=== PATIENT | female | born 1990 | race Caucasian/White ===

== ENCOUNTER 2024-05-20 10:56 | Emergency (ER) | payer BC, SELFPAY ==
[2024-05-20 11:01] VITALS: BP 151/81; PULSE 96; RESP 18; TEMP 37; O2SAT 100; BMI 24.2
--- NOTE | 2024-05-20 11:21 | CRLHL7_ITS ---
For Patients: As a result of the Century Cures Act, medical imaging exams and procedure reports are released immediately into your electronic medical record. You may view this report before your referring provider. If you have questions, please contact your health care provider. Indication: Chest pain Technique: PA and lateral views of the chest. Comparison: None. Findings: Normal cardiomediastinal silhouette. No focal consolidation, pleural effusions, or visualized pneumothorax. Impression: No acute cardiopulmonary disease. Dictated by Bull Spicer MD @ 05/20/2024 12:49:45 PM (Electronically Signed)
--- NOTE | 2024-05-20 11:21 | ED.GENADULT ---
HPI - General Adult General Date Seen: 05/20/24 Chief complaint: Anxiety Stated complaint: Chest pain, high cholesterol Time Seen by Provider: 05/20/24 11:10 Source: patient, RN notes reviewed and old records reviewed Mode of arrival: ambulatory Limitations: no limitations History of Present Illness HPI narrative: Patient is a 33-year-old here for evaluation at the recommendation of the triage nurse for chest pain. She says a week ago or so she had an episode of pain in her left chest which was sharp, brief and kind of doubled her over. This is in the left lateral chest. She has had some more dull pain that seemed to spread into the anterior left chest, back and shoulder. All of this resolved, but today she redeveloped that sharp lateral chest pain, call clinic and was advised to call 911 but she did not feel that was necessary and so comes in by private car. She has kind of chronic problems with anxiety that causes some stomach upset but this feels different. She does not feel short of breath, sharp pain was pleuritic. She has not noted any lower extremity swelling or pain, no recent travel or immobility and denies any hormone use. Her brother was recently diagnosed with costochondritis. She has a history of high cholesterol, she is not sure with the numbers were but no treatment was recommended. There is no family history of coronary artery disease in parents, grandparents or siblings. She has not smoke since college. Does not drink significantly. Related Data Allergies Allergy/AdvReac Type Severity Reaction Status Date / Time Sulfa (Sulfonamide AdvReac Intermediate Rash Verified 06/13/22 13:47 Antibiotics) Review of Systems Status of ROS: Reports: 10 or more systems reviewed and unremarkable except as noted in History and below [facility] Medical History Otitis media ?H66.90 - Otitis media, unspecified, unspecified ear (ICD-10) Social History Smoking Status: Never smoker Exam Narrative: Exam Narrative: Vital signs as noted above. In general, an alert, well-appearing patient. Looks comfortable. Head: Normocephalic, atraumatic. Eyes: Pupils are equal reactive. Extraocular movements are full. Conjunctivae are normal. ENT: Mucous membranes are moist. Neck: Supple without lymphadenopathy. Heart: Regular rate and rhythm. No murmur or rub. Lungs: Clear bilaterally. No increased work of breathing, crackles or wheezes. Abdomen: Soft and nontender. No organomegaly. Extremities: Well perfused. No edema. No calf tenderness. Pulses intact. Neurologic: Patient is alert and oriented to person and place. Speech is fluent. Face is symmetric. Moves all extremities equally. Affect: Normal. Skin: Warm and dry. Well perfused. Const: Vital Signs, click to edit/add: Vital Signs - 24 hr 05/20/24 11:01 05/20/24 12:59 Temperature 98.6 F Pulse Rate [Pulse Oximeter] 96 73 Respiratory Rate 18 16 Blood Pressure [Ri ght Upper Arm] 151/81 H 119/74 Pulse Oximetry 100 100 Oxygen Delivery Me thod Room Air Room Air Documenting provider has reviewed patient's vital signs: yes Course Course ED Course: Patient is PERC negative, I did not order a D-dimer as I think she can be rule out for pulmonary embolism based on history and exam. With regard to her symptoms, I think these are unlikely to be cardiac, will do an EKG and chest x-ray. Symptoms are not overly suggestive of pericarditis or myocarditis, sounds more consistent with pleurisy, will do a chest x-ray to rule out underlying problems such as pneumothorax, pneumonia, pleural effusion etcetera, symptoms seem unlikely to be related to anxiety as well. Chest x-ray by my review is negative, final radiology read is negative. EKG shows a sinus rhythm, ventricular rate of 65, no ST segment changes, normal T-waves, no GA depression. Troponin is 0. Discussed with her I think symptoms are most likely pleurisy, could be more in the chest wall. She does have a history of shingles, would doubt this given relatively recent history of that but certainly if she develops a rash would recommend re-evaluation. Otherwise, I recommended a trial of ibuprofen 400 mg 3 times daily for few days up to 1 week, primary care follow-up for persistent symptoms and return to the ER for any acute worsening, severe pain, shortness of breath, fevers etcetera. Vital Signs Vital signs: Initial Vital Signs Temperature 98.6 F 05/20/24 11:01 Temperature Source Temporal Artery Scan 05/20/24 11:01 Pulse Rate 96 07/09/24 11:01 Respiratory Rate 18 05/20/24 11:01 Blood Pressure 151/81 H 05/20/24 11:01 Blood Pressure Mean 104 05/20/24 11:01 Pulse Oximetry 100 05/20/24 11:01 Oxygen Delivery Method Room Air 05/20/24 11:01 Vital Signs Temperature 98.6 F 05/20/24 11:01 Pulse Rate 96 05/20/24 11:01 Respiratory Rate 18 05/20/24 11:01 Blood Pressure 151/81 H 05/20/24 11:01 Pulse Oximetry 100 05/20/24 11:01 Oxygen Delivery Method Room Air 05/20/24 11:01 Temperature 98.6 F 05/20/24 11:01 Pulse Rate 73 05/20/24 12:59 Respiratory Rate 16 05/20/24 12:59 Blood Pressure 119/74 05/20/24 12:59 Pulse Oximetry 100 05/20/24 12:59 Oxygen Delivery Method Room Air 05/20/24 12:59 Medical Decision Making Lab Data Labs: Lab Results 05/20/24 Range/Units 11:21 POC Troponin I 0.00 L (0.01-0.04) ng/ml Discharge Plan Discharge Clinical Impression: Chest pain Patient Disposition: Home, Self-Care Condition: Stable Instructions: Chest Pain (DC) Additional Instructions: Your evaluation today is unremarkable. Your troponin, which is a marker of damage to the heart muscle, is normal. Your EKG is normal, as is your chest x-ray. I do not have any reason to suspect that her symptoms are related to your heart. I would recommend a trial of ibuprofen, 400 mg 3 times daily for a few days, up to a week. Recommend primary care follow-up next week if not improving. Return any time for acute worsening. Follow Up/Referrals: Kirsten Avila MD [Primary Care Provider] - Stand Alone Forms: [facility] Info Instructions
[2024-05-20 12:59] VITALS: BP 119/74; PULSE 73; RESP 16; O2SAT 100
== END 2024-05-20 13:04 | disposition home or self-care (01) ==
PROVIDERS: Emergency Provider Emergency Medicine; PCP Family Medicine
DX: R07.9 Chest pain, unspecified (principal)
CPT/HCPCS: 71046; 84484; 93005; 99284; 99285

== ENCOUNTER 2024-07-12 09:37 | Outpatient (CLI) | payer BC, SELFPAY | END 2024-07-12 09:38 | disposition home or self-care (01) | LOC: NFLDREF 07-13 09:47 | PROVIDERS: PCP Family Medicine; Referring Provider Family Medicine; Visit Provider Nurse Practitioner | DX: R07.9 Chest pain, unspecified (principal) | CPT/HCPCS: 84484 ==

== ENCOUNTER 2024-08-09 17:03 | Emergency (ER) | payer BC, SELFPAY ==
[2024-08-09 17:08] VITALS: BP 134/71; PULSE 94; RESP 16; TEMP 37.4; O2SAT 99; BMI 24.5
--- NOTE | 2024-08-09 17:23 | CRLHL7_ITS ---
For Patients: As a result of the Century Cures Act, medical imaging exams and procedure reports are released immediately into your electronic medical record. You may view this report before your referring provider. If you have questions, please contact your health care provider. INDICATION: Spotting and midline pain. TECHNIQUE: Ultrasound OB pelvis transabdominal and transvaginal. Real-time stone-scale imaging of the pelvis was performed. COMPARISON: None. FINDINGS: No intrauterine gestation identified. The endometrial stripe is thickened to 1.5 cm. No mass visualized. The uterus is otherwise unremarkable. Probable corpus luteum within the left ovary. Normal arterial and venous blood flow is noted within the left ovary as well. The right ovary is not visualized. No adnexal mass. Small volume simple free fluid noted within the pelvis. IMPRESSION: No intrauterine gestation visualized. In the setting of a positive beta HCG, findings could represent an early nonvisualized intrauterine gestation, an early nonvisualized ectopic , or a failed intrauterine gestation. Recommend close clinical follow-up with serial B-HCGs and repeat US, as indicated. Dictated by Elbert Adame MD @ 08/09/2024 7:01:48 PM (Electronically Signed)
--- NOTE | 2024-08-09 17:25 | ED.GENADULT ---
HPI - General Adult General Chief complaint: OB/Uterine Contractions Stated complaint: 6 weeks , cramping Time Seen by Provider: 08/09/24 17:19 Source: patient Mode of arrival: ambulatory Limitations: no limitations History of Present Illness HPI narrative: 34-year-old female at 6 weeks gestation presents today with vaginal bleeding and lower abdominal cramping. She states that both started yesterday. Cramping has gotten much worse today. She states that yesterday she had to wear a pad but today the bleeding has slowed down and she is currently just spotting. She denies fevers or chills. No nausea or vomiting. She denies any dysuria, increased urinary frequency or urgency. No diarrhea or recent illness. Patient states that she did not have any nausea or vomiting with this . She did have breast tenderness and this is now better. Related Data Home Medications ?Medication ?Instructions ?Recorded ?Confirmed No Known Home Medications 07/12/24 07/12/24 Allergies Allergy/AdvReac Type Severity Reaction Status Date / Time prednisone Allergy Verified 08/09/24 17:08 Sulfa (Sulfonamide AdvReac Intermediate Rash Verified 08/09/24 17:08 Antibiotics) Review of Systems Status of ROS: Reports: 10 or more systems reviewed and unremarkable except as noted in History and below [facility] Medical History Otitis media ?H66.90 - Otitis media, unspecified, unspecified ear (ICD-10) Social History Smoking Status: Never smoker How often do you have a drink containing alcohol: never AUDIT-C Alcohol total score: 0 Non-prescribed substance use: denies use Exam Narrative: Exam Narrative: Well-nourished well-developed patient in no acute distress, somewhat anxious. Alert and oriented. Answers questions appropriately. Mood and affect are appropriate. Thoughts are goal oriented and rational. No tangential or magical thinking noted. Patient speaks in full sentences without needing to catch her breath. HEENT: Normocephalic atraumatic. Pupils are equally round reactive to light. Extraocular muscles are intact. Conjunctivae are moist without any icterus noted. Moist mucous membranes. Neck is soft. Cardiovascular: Heart is regular rate and rhythm S1 and S2 are present without any murmurs. Lungs: Clear to auscultation bilaterally no wheezes rhonchi or rales are appreciated. Patient takes deep breaths without any discomfort. Abdomen: Soft and nondistended with normal bowel sounds. Mild suprapubic discomfort. No left or right pelvic tenderness. Extremities: Bilateral lower extremities are without edema. Skin: Well perfused without any obvious rashes. Const: Vital Signs, click to edit/add: Vital Signs - 24 hr 08/09/24 17:08 Temperature 99.3 F Pulse Rate [Pulse Oximeter] 94 Respiratory Rate 16 Blood Pressure [Ri ght Upper Arm] 134/71 Pulse Oximetry 99 Oxygen Delivery Me thod Room Air Course Course ED Course: Blood type B positive. HCG 2481. Normal CBC. UA without evidence of infection. ultrasound showing no intrauterine noted. No ectopic visualized. Discussed patient with Dr. Ildefonso quiñones who recommends repeat HCG on Sunday and close follow-up. Vital Signs Vital signs: Initial Vital Signs Temperature 99.3 F 08/09/24 17:08 Temperature Source Temporal Artery Scan 08/09/24 17:08 Pulse Rate 94 08/09/24 17:08 Respiratory Rate 16 08/09/24 17:08 Blood Pressure 134/71 08/09/24 17:08 Blood Pressure Mean 92 08/09/24 17:08 Blood Pressure Position Right Lateral 08/09/24 17:08 Pulse Oximetry 99 08/09/24 17:08 Oxygen Delivery Method Room Air 08/09/24 17:08 Vital Signs Temperature 99.3 F 08/09/24 17:08 Pulse Rate 94 08/09/24 17:08 Respiratory Rate 16 08/09/24 17:08 Blood Pressure 134/71 08/09/24 17:08 Pulse Oximetry 99 08/09/24 17:08 Oxygen Delivery Method Room Air 08/09/24 17:08 Temperature 99.3 F 08/09/24 17:08 Pulse Rate 94 08/09/24 17:08 Respiratory Rate 16 08/09/24 17:08 Blood Pressure 134/71 08/09/24 17:08 Pulse Oximetry 99 08/09/24 17:08 Oxygen Delivery Method Room Air 08/09/24 17:08 Medical Decision Making MDM Narrative Medical decision making narrative: 34-year-old female with probable miscarriage. Follow-up per above. Lab Data Lab results reviewed: Yes I reviewed the patient's lab results Labs: Lab Results 08/09/24 08/09/24 Range/Units 17:35 17:43 WBC 6.92 (4.50-11.00) K/uL RBC 4.53 (4.00-5.20) m/uL Hgb 13.4 (12.0-16.0) gm/dL Hct 40.8 (33.0-51.0) % MCV 90 (80-100) fL MCH 30 (26-34) pg MCHC 33 (32-36) gm/dL RDW Coeff of [place] 11.4 L (11.5-15.5) % Plt Count 253 (140-440) K/uL Neut % (Auto) 54.0 (42.0-72.0) % Lymph % (Auto) 38.7 (20-44) % [place] % (Auto) 6.4 (0.0-11.0) % Eos % (Auto) 0.6 (0.0-7.0) % Baso % (Auto) 0.3 (0.0-3.0) % Neut # (Auto) 3.74 (1.7-7.0) K/uL Lymph # (Auto) 2.68 (0.90-2.90) K/uL [place] # (Auto) 0.40 (0.00-0.90) K/UL Eos # (Auto) 0.04 (0.00-0.50) K/uL Baso # (Auto) 0.02 (0.00-0.30) K/uL Abs Immat Gran (auto) 0.00 (0.00-0.30) K/uL Imm/Tot Granulo (auto) 0.0 % HCG, Quant 2481.80 mIU/mL Urine Color Yellow (Yellow) Urine Appearance Clear (Clear) Urine pH 5.5 (5.0-8.5) Ur Specific [place] >= 1.030 (1.000-1.030) Urine Protein 1+ A (Negative) Urine Glucose (UA) Negative (Negative) Urine Ketones 1+ A (Negative) Urine Blood 2+ A (Negative) Urine Nitrite Negative (Negative) Urine Bilirubin Negative (Negative) Urine Urobilinogen 0.2 (0.2-1.0) Ur Leukocyte Esterase Negative (Negative) Urine RBC 0-2 (0-2) Urine WBC 0-2 (0-5) Ur Squamous Epith Cells Moderate A (None-Few) Urine Bacteria None (None) Blood Type B Positive Imaging Data Ob ultrasound: Attestation: I have reviewed the pertinent imaging results. Radiologist's impression: TECHNIQUE: Ultrasound OB pelvis transabdominal and transvaginal. Real-time stone-scale imaging of the pelvis was performed. COMPARISON: None. FINDINGS: No intrauterine gestation identified. The endometrial stripe is thickened to 1.5 cm. No mass visualized. The uterus is otherwise unremarkable. Probable corpus luteum within the left ovary. Normal arterial and venous blood flow is noted within the left ovary as well. The right ovary is not visualized. No adnexal mass. Small volume simple free fluid noted within the pelvis. IMPRESSION: No intrauterine gestation visualized. In the setting of a positive beta HCG, findings could represent an early nonvisualized intrauterine gestation, an early nonvisualized ectopic , or a failed intrauterine gestation. Recommend close clinical follow-up with serial B-HCGs and repeat US, as indicated. Discharge Plan Discharge Clinical Impression: Miscarriage Patient Disposition: Home, Self-Care Condition: Stable Additional Instructions: You need to follow-up with your primary care or obstetrics/gynecology nurse team on Sunday to have a repeat hCG level drawn. If you develop worsening pain between then and now, you should return to the emergency room. There is a small chance that this is an ectopic . Prescriptions: No Action No Known Home Medications Follow Up/Referrals: Kirsten Avila MD [Primary Care Provider] - Stand Alone Forms: [facility] Info Instructions
[2024-08-09 17:48] LABS: Appearance Urine Clear (Clear); Bilirubin Urine Negative (Negative); Blood Urine 2+ (Negative); Color Urine Yellow (Yellow); Glucose Urine Negative (Negative); Ketones Urine 1+ (Negative); Leukocyte Esterase Urine Negative (Negative); Nitrite Urine Negative (Negative); Protein Urine 1+ (Negative); Specific Gravity Urine >= 1.030 (1.000-1.030); Urobilinogen Urine 0.2 (0.2-1.0); pH Urine 5.5 (5.0-8.5)
[2024-08-09 17:48] LABS: Basophils Absolute Auto 0.02 K/uL (0.00-0.30); Basophils Percent Auto 0.3 % (0.0-3.0); Eosinophils Absolute Auto 0.04 K/uL (0.00-0.50); Eosinophils Percent Auto 0.6 % (0.0-7.0); Hematocrit 40.8 % (33.0-51.0); Hemoglobin* 13.4 gm/dL (12.0-16.0); Lymphocytes Absolute Auto 2.68 K/uL (0.90-2.90); Lymphocytes Percent Auto 38.7 % (20-44); Mean Corpuscular HGB Conc 33 gm/dL (32-36); Mean Corpuscular Hemoglobin 30 pg (26-34); Mean Corpuscular Volume 90 fL (80-100); Monocytes Percent Auto 6.4 % (0.0-11.0); Neutrophils Absolute Auto 3.74 K/uL (1.7-7.0); Platelet Count* 253 K/uL (140-440); RDW Coefficient of Variation % 11.4 % (11.5-15.5); Red Blood Count 4.53 m/uL (4.00-5.20); White Blood Count* 6.92 K/uL (4.50-11.00)
[2024-08-09 17:51] LABS: RBC Urine 0-2 (0-2); Squamous Epithelial Cell Urine Moderate (None-Few); WBC Urine 0-2 (0-5)
[2024-08-09 18:21] LABS: Slide Review Reflex No
== END 2024-08-09 19:31 | disposition home or self-care (01) ==
PROVIDERS: Emergency Provider Family Medicine; PCP Family Medicine
DX: O03.9 Complete or unspecified spontaneous abortion without complication (principal)
CPT/HCPCS: 36415; 76801; 76815; 76817; 81001; 84702; 85025; 86900; 86901; 87086; 93976; 99283; 99284

== ENCOUNTER 2024-08-10 07:37 | Day surgery (SDC) | payer BC, SELFPAY ==
[2024-08-10] VITALS (16 sets, daily range): BP systolic 103–130; BP diastolic 59–84; PULSE 69–113; RESP 14–25; TEMP 36.2–36.9; O2SAT 94–100; BMI 24.5
--- NOTE | 2024-08-10 08:07 | CRLHL7_ITS ---
For Patients: As a result of the Century Cures Act, medical imaging exams and procedure reports are released immediately into your electronic medical record. You may view this report before your referring provider. If you have questions, please contact your health care provider. Indication: Left-sided pain in the setting of . Inconclusive scan August 01, 2020 Technique: Sonography of the pelvis was performed. The study was performed transvaginally. Grayscale and color Doppler imaging was acquired. Comparison: August 01, 2024 Findings: The uterus is normal in size. There is no myometrial mass. Incidental nabothian cysts. The endometrium measures 1.3 centimeters. The uterus does not contain a gestational sac, yolk sac or pole. The right ovary was not visualized. There was no identified right adnexal mass The left ovary measures 4.0 x 4.2 x 3.3 centimeters. This contains small follicles and what is likely a corpus luteum cyst of measuring 2.8 x 2.4 x 2.5 centimeters. There is a left adnexal mass measuring 2.8 x 1.8 x 2.3 centimeters which appears between the uterus and the left ovary. This is probably tubal in origin and is suspicious for a left-sided ectopic . Complex fluid is noted in the cul-de-sac and left adnexa. I discussed the above findings with Dr. Remington Velasquez at 9:25 a.m. on August 10, 2024 Impression: Findings suspicious for a left adnexal ectopic . Dictated by Baljit Stuart MD @ 08/10/2024 9:29:04 AM (Electronically Signed)
--- NOTE | 2024-08-10 08:09 | ED_ITS ---
HPI - General Adult General Chief complaint: Abdominal Pain Stated complaint: 7 weeks , cramping Time Seen by Provider: 08/10/24 07:49 History of Present Illness HPI narrative: 34-year-old female is 6 or 7 weeks and having a miscarriage. She has cramping in bleeding and was seen yesterday in this emergency department. Ultrasound showed no intrauterine and beta hCG had declined from about [id number]. There is yet some suspicion that there could be an ectopic . The patient was instructed to return if pain was worsening. She is reporting more pain in her left lower abdomen currently so she returns. She has normal vital signs. She does not appear to be in significant distress. Related Data Previous Rx's ?Medication ?Instructions ?Recorded docusate sodium 100 mg capsule 100 mg PO BID PRN #100 caps 08/10/24 ibuprofen 600 mg tablet 600 mg PO QID PRN #30 tabs 08/10/24 oxycodone 5 mg tablet 5 mg PO TID PRN pain #20 tabs 08/10/24 Allergies Allergy/AdvReac Type Severity Reaction Status Date / Time prednisone Allergy Verified 08/09/24 17:08 Sulfa (Sulfonamide AdvReac Intermediate Rash Verified 08/09/24 17:08 Antibiotics) Review of Systems Status of ROS: Reports: 10 or more systems reviewed and unremarkable except as noted in History and below Narrative: Constitutional: No fevers, no weight gain or loss. Eyes: No discharge. No vision changes. HENT: No congestion, no sore throat, no ear pain. Cardiovascular: No chest pain, no palpitations. Respiratory: No shortness of breath, no wheezes, no cough. Gastrointestinal: No vomiting, no diarrhea. Lower abdominal pain. Genitourinary: No dysuria, no hematuria. Musculoskeletal: Normal range of motion. Skin: No rashes, no pruritis. Neurological: No dizziness, weakness, sensory change, speech change. Endo/Heme/Allergies: No bruising or bleeding. No polydipsia. Pysch: no suicidality, no anxiety, no insomnia. All other systems reviewed and are negative. [facility] Medical History (Updated 08/10/24 @ 13:04 by Micki Rosales MD) Otitis media ?H66.90 - Otitis media, unspecified, unspecified ear (ICD-10) Surgical History (Updated 08/10/24 @ 13:04 by Micki Rosales MD) H/O unilateral salpingectomy (08/10/24) ?Z90.79 - Acquired absence of other genital organ(s) (ICD-10) History of eye surgery ?Z98.890 - Other specified postprocedural states (ICD-10) History of wisdom tooth extraction ?K08.409 - Partial loss of teeth, unspecified cause, unspecified class (ICD- 10) Family History (Updated 08/10/24 @ 10:44 by Micki Rosales MD) Mother High cholesterol Maternal Grandmother High cholesterol Social History Smoking Status: Never smoker How often do you have a drink containing alcohol: never How often do you have six or more drinks on one occasion: Never AUDIT-C Alcohol total score: 0 Non-prescribed substance use: denies use Exam Narrative: Exam Narrative: Constitutional: Well-developed, well-nourished, no acute distress. HEENT: Normocephalic, atraumatic. Neck: Normal range of motion. Nontender. Supple. Heart: Regular. No murmurs. Normal rate. Intact distal pulses. Lungs: Clear to auscultation. No chest discomfort. No wheezes, rhonchi, or rales. Abdomen: Normal bowel sounds. Tenderness in the lower abdomen. No rebound tenderness. Genitalia: Deferred. Back: No midline tenderness. Normal range of motion. Extremities: Normal range of motion. No injury. Skin: Intact. No rash. Warm. No erythema or pallor. Neurologic: No altered sensation. No weakness. Alert and oriented. Psychiatric: No suicidality. No anxiety or depression. No insomnia. Nursing notes and vitals signs are reviewed. Const: Vital Signs, click to edit/add: Vital Signs - 24 hr 08/10/24 07:49 Temperature 98.2 F Pulse Rate [Right Pulse Oximeter] 84 Respiratory Rate 18 Blood Pressure [Ri ght Upper Arm] 130/73 Pulse Oximetry 98 Oxygen Delivery Me thod Room Air Course Vital Signs Vital signs: Initial Vital Signs Temperature 98.2 F 08/10/24 07:49 Temperature Source Temporal Artery Scan 08/10/24 07:49 Pulse Rate 84 08/10/24 07:49 Pulse Rhythm Regular 08/10/24 07:49 Pulse Strength 3+ Normal 08/10/24 07:49 Respiratory Rate 18 08/10/24 07:49 Blood Pressure 130/73 08/10/24 07:49 Blood Pressure Mean 92 08/10/24 07:49 Blood Pressure Position Sitting 08/10/24 07:49 Pulse Oximetry 98 08/10/24 07:49 Oxygen Delivery Method Room Air 08/10/24 07:49 Vital Signs Temperature 98.2 F 08/10/24 07:49 Pulse Rate 84 08/10/24 07:49 Respiratory Rate 18 08/10/24 07:49 Blood Pressure 130/73 08/10/24 07:49 Pulse Oximetry 98 08/10/24 07:49 Oxygen Delivery Method Room Air 08/10/24 07:49 Temperature 97.6 F 08/10/24 16:15 Pulse Rate 70 08/10/24 16:15 Respiratory Rate 16 08/10/24 16:15 Blood Pressure 116/63 08/10/24 16:15 Pulse Oximetry 98 08/10/24 16:15 Oxygen Delivery Method Room Air 08/10/24 16:15 Medications Administered Medications: Discontinued Medications Generic Name Dose Route Start Last Admin Trade Name Freq PRN Reason Stop Dose Admin Hydrocodone Bitart/Acetaminophen 1 tab 08/10/24 08:07 08/10/24 08:13 Hydrocodone-Acetamin 5-325 Mg 1 Tab PO 08/10/24 08:08 1 tab ONCE ONE Administration Bupivacaine HCl 30 ml 08/10/24 12:36 08/10/24 12:15 Bupivacaine 0.5% 30 Ml INJECTION 08/10/24 12:37 9 ml ONCE ONE Administration Fentanyl 50 mcg 08/10/24 12:14 08/10/24 13:28 Fentanyl 100 Mcg/2 Ml Inj IVP 50 mcg Q5M PRN Administration Lactated Ringer's 1,000 mls @ 75 mls/hr 08/10/24 12:15 08/10/24 13:47 Lactated Ringers 1000 Ml IV 35 mls/hr .[id number] [place] Infusion Ketorolac Tromethamine 30 mg 08/10/24 10:46 08/10/24 10:50 Ketorolac 30 Mg/Ml Inj IVP 08/10/24 10:47 30 mg ONCE ONE Administration Oxycodone HCl 5 - 10 mg 08/10/24 13:51 08/10/24 14:21 Oxycodone 5 Mg Tablet PO 5 mg Q4H PRN Administration 4 OR GREATER ON PAIN SCALE Medical Decision Making Lab Data Labs: Lab Results 08/10/24 Range/Units 09:53 WBC 7.18 (4.50-11.00) K/uL RBC 4.41 (4.00-5.20) m/uL Hgb 13.1 (12.0-16.0) gm/dL Hct 39.7 (33.0-51.0) % MCV 90 (80-100) fL MCH 30 (26-34) pg MCHC 33 (32-36) gm/dL RDW Coeff of [place] 11.5 (11.5-15.5) % Plt Count 235 (140-440) K/uL Neut % (Auto) 71.5 (42.0-72.0) % Lymph % (Auto) 21.2 (20-44) % [place] % (Auto) 6.8 (0.0-11.0) % Eos % (Auto) 0.1 (0.0-7.0) % Baso % (Auto) 0.3 (0.0-3.0) % Neut # (Auto) 5.13 (1.7-7.0) K/uL Lymph # (Auto) 1.52 (0.90-2.90) K/uL [place] # (Auto) 0.50 (0.00-0.90) K/UL Eos # (Auto) 0.01 (0.00-0.50) K/uL Baso # (Auto) 0.02 (0.00-0.30) K/uL Abs Immat Gran (auto) 0.01 (0.00-0.30) K/uL Imm/Tot Granulo (auto) 0.1 % Sodium 137 (135-149) mmol/L Potassium 3.7 (3.6-5.1) mmol/L Chloride 103 (96-114) mmol/L Carbon Dioxide 23 (20-32) mmol/L Anion Gap 11 (7-15) mEq/L BUN 12 (5-24) mg/dL Creatinine 0.6 (0.5-1.5) mg/dL Estimated Creat Clear 123.68 Estimated GFR 121 ml/min Glucose 87 (60-115) mg/dL Calcium 9.0 (8.4-10.6) mg/dL Total Bilirubin 1.1 (0.1-1.5) mg/dL Direct Bilirubin 0.3 (0.0-0.5) mg/dL AST 26 (12-35) U/L ALT 14 (4-35) U/L Alkaline Phosphatase 68 (40-150) U/L Total Protein 7.4 (6.0-8.3) g/dL Albumin 4.5 (3.3-5.0) g/dL HCG, Quant 2254.10 mIU/mL Blood Type B Positive Antibody Screen NEGATIVE Discharge Plan Discharge Discharge Diet: Regular
[2024-08-10] MEDS: HYDROCODONE-ACETAMIN 5-325 MG 1 TAB PO (08:13)
[2024-08-10 10:00] LABS: Basophils Absolute Auto 0.02 K/uL (0.00-0.30); Basophils Percent Auto 0.3 % (0.0-3.0); Eosinophils Absolute Auto 0.01 K/uL (0.00-0.50); Eosinophils Percent Auto 0.1 % (0.0-7.0); Hematocrit 39.7 % (33.0-51.0); Hemoglobin* 13.1 gm/dL (12.0-16.0); Immature Granulocytes Abs Auto 0.01 K/uL (0.00-0.30); Immature Granulocytes Pct Auto 0.1 %; Lymphocytes Absolute Auto 1.52 K/uL (0.90-2.90); Lymphocytes Percent Auto 21.2 % (20-44); Mean Corpuscular HGB Conc 33 gm/dL (32-36); Mean Corpuscular Hemoglobin 30 pg (26-34); Mean Corpuscular Volume 90 fL (80-100); Monocytes Percent Auto 6.8 % (0.0-11.0); Neutrophils Absolute Auto 5.13 K/uL (1.7-7.0); Neutrophils Percent Auto 71.5 % (42.0-72.0); Platelet Count* 235 K/uL (140-440); RDW Coefficient of Variation % 11.5 % (11.5-15.5); Red Blood Count 4.41 m/uL (4.00-5.20); White Blood Count* 7.18 K/uL (4.50-11.00)
[2024-08-10 10:11] LABS: Slide Review Reflex No
[2024-08-10 10:24] LABS: Albumin* 4.5 g/dL (3.3-5.0)
[2024-08-10 10:25] LABS: Chloride* 103 mmol/L (96-114); Potassium* 3.7 mmol/L (3.6-5.1); Sodium* 137 mmol/L (135-149)
[2024-08-10 10:27] LABS: Anion Gap 11 mEq/L (7-15); Aspartate Amino Transferase* 26 U/L (12-35); Bilirubin Direct* 0.3 mg/dL (0.0-0.5); Bilirubin Total* 1.1 mg/dL (0.1-1.5); Blood Urea Nitrogen* 12 mg/dL (5-24); Carbon Dioxide* 23 mmol/L (20-32); Creatinine* 0.6 mg/dL (0.5-1.5); Est. Creatinine Clearance* 123.68; Estimated Glomerular Filt Rate 121 ml/min; Total Protein* 7.4 g/dL (6.0-8.3)
[2024-08-10 10:28] LABS: Alanine Aminotransferase* 14 U/L (4-35); Alkaline Phosphatase* 68 U/L (40-150); Glucose* 87 mg/dL (60-115)
--- NOTE | 2024-08-10 10:34 | P.GYNCN_ITS ---
CYTOMETRY TECHNOLOGIST - CN: HPI Data of Consult Time Seen by Provider: 10:34 Date Seen: 08/10/24 Patient: [facility] Patient Consult date: 08/10/24 Requesting Physician: Remington Velasquez Primary Care Provider: Kirsten Avila MD Consult Narrative Reason for consult: abdominal pain Narrative: Tricia Koroma is a 34 year old 2 para 1001 at approximately 6-7 weeks gestation by last menstrual period who presented to the emergency department this morning with significant left lower quadrant pain that radiated to the right lower quadrant. She had a positive test at home approximately 2 weeks ago. This was a spontaneous . She states that she and her p artner went through 7 cycles of medication plus intrauterine insemination without successful . She has had a slight amount of cramping since she had a positive test 2 weeks ago and developed brown discharge when she wiped with toilet tissue when she urinated approximately 1 week ago. She had increased discharge on 08/07/2024 and had a beta HCG performed in her [facility] office which by her report was approximately 3000. Began having severe mid suprapubic cramping on Sunday night with intense cramping again yesterday with increased bleeding that was read in color. Came into the emergency department yesterday in her beta HCG was 2400 ultrasound showed no within the uterus and no evidence of ectopic gestation so the plan had been for her to follow up on Sunday for another beta HCG and diagnosis of possible miscarriage versus ectopic . She then developed significant left lower quadrant pain this morning and return to the emergency department. The ultrasound showed a uterus that is normal size. There is no myometrial mass. Incidental nabothian cysts were identified. The endometrium measures 1.3 cm. The uterus does not contain a gestational sac, yolk sac or pole. The right ovary was not visualized. No identified right adnexal mass. The left ovary measures 4.0 x 4.2 x 3.3 cm this contains small follicles and a likely corpus luteum cyst measuring 2.8 x 2.4 x 2.5 cm. There is a left adnexal mass measuring 2.8 x 1.8 x 2.3 cm which appears to between the uterus and left ovary. This is a probable tubal left-sided ectopic . Complex fluid is noted in the cul-de-sac and left adnexa consistent with blood or blood clot. Impression was findings suspicious for left adnexal ectopic . I reviewed the ultrasound with the patient and discussed options for treatment of ectopic including laparoscopic left salpingectomy with removal of ectopic or treatment with methotrexate. I reviewed how both options are performed including risks, side effects and recovery from both treatments. After this discussion the patient decided that she would prefer a salpingectomy. Consent form reviewed and signed for left laparoscopic salpingectomy with removal of ectopic . She is planning on going home later today after the surgery. cc:: CC: [facility] Medical History Otitis media ?H66.90 - Otitis media, unspecified, unspecified ear (ICD-10) Surgical History History of eye surgery ?Z98.890 - Other specified postprocedural states (ICD-10) History of wisdom tooth extraction ?K08.409 - Partial loss of teeth, unspecified cause, unspecified class (ICD- 10) Family History (Updated 08/10/24 @ 10:43 by Micki Rosales MD) Mother High cholesterol Maternal Grandmother High cholesterol Social History Smoking Status: Never smoker How often do you have a drink containing alcohol: never AUDIT-C Alcohol total score: 0 Non-prescribed substance use: denies use Meds Home Medications and Allergies Home Medications ?Medication ?Instructions ?Recorded ?Confirmed ?Type No Known Home Medications 07/12/24 07/12/24 History Allergies Allergy/AdvReac Type Severity Reaction Status Date / Time prednisone Allergy Verified 08/09/24 17:08 Sulfa (Sulfonamide AdvReac Intermediate Rash Verified 08/09/24 17:08 Antibiotics) CYTOMETRY TECHNOLOGIST - Exam Physical Exam: Vital signs: Temp Pulse Resp BP Pulse Ox O2 Del Method 98.2 F 84 18 130/73 98 Room Air 08/10/24 07:49 08/10/24 07:49 08/10/24 07:49 08/10/24 07:49 08/10/24 07:49 08/10/24 07:49 Narrative: General: Pleasant, , well groomed woman in no acute distress. Vital signs: Included in her electronic medical record. Heart: Regular rate and rhythm without gallop, rub or murmur. Chest: Clear to auscultation bilaterally. Abdomen: Mild distension. Mild bilateral lower quadrant tenderness left greater than right to deep palpation. No guarding or rebound. Normal bowel sounds throughout. Pelvic: Deferred to the operating room Extremities: No pain or edema CYTOMETRY TECHNOLOGIST - Results Labs Labs: Short CBC 08/10/24 Range/Units 09:53 WBC 7.18 (4.50-11.00) K/uL Hgb 13.1 (12.0-16.0) gm/dL Hct 39.7 (33.0-51.0) % Plt Count 235 (140-440) K/uL BMP 08/10/24 09:53 Sodium 137 Potassium 3.7 Chloride 103 Carbon Dioxide 23 BUN 12 Creatinine 0.6 Glucose 87 Calcium 9.0 Liver Function 08/10/24 Range/Units 09:53 Total Bilirubin 1.1 (0.1-1.5) mg/dL Direct Bilirubin 0.3 (0.0-0.5) mg/dL AST 26 (12-35) U/L ALT 14 (4-35) U/L Alkaline Phosphatase 68 (40-150) U/L Albumin 4.5 (3.3-5.0) g/dL Assessment and Plan Assessment and plan (1) Ectopic of left ovary: Status: Acute Plan 1. Consent form reviewed and signed for laparoscopic Left salpingectomy with removal of ectopic . 2. Last ate yesterday at 4-4:30pm, has had only water today.
[2024-08-10] MEDS: KETOROLAC 30 MG/ML inj IVP (10:50)
--- NOTE | 2024-08-10 10:59 | P.PCN_ITS ---
Procedure Note Time Seen by Provider: 13:00 Date Seen: 08/10/24 Date of procedure: 08/10/24 Will [facility] bill your pro fee for this procedure?: Yes Procedure: Preoperative diagnosis: 34-year-old 2 para 1001 with left adnexal ectopic Postoperative diagnosis: Same. Procedure: Laparoscopic left salpingectomy Anesthesia: General endotracheal, local Surgeon: Micki Rosales MD Bread Supervisor: Not applicable EBL: 150 mL Urine output: 50 mL clear urine IVF: 900 ml Specimen: Left fallopian tube with ectopic to pathology Findings: On exam under anesthesia: The uterus was anteverted, 8-10 week size, mobile, without masses or nodularity palpable. Adnexa were without mass or fullness bilaterally. The uterus sounded to 10 cm. On laparoscopy: The uterus, appendix, liver edge and gallbladder all normal. There was approximately 3 x 3 cm ectopic gestation in the mid portion of the fallopian tube on the left. The right fallopian tube had a distal hydrosalpinx. Procedure: Tricia was taken to the operating room where general anesthetic was found to be adequate. She was placed in the dorsal lithotomy position and an exam under anesthesia was performed with findings stated above. She was then prepped and draped in a normal sterile manner. A Palma catheter was then placed. A bivalve speculum was then placed in the vaginal canal to visualize the cervix. The anterior lip of the cervix was grasped with an a long Allis clamp. The cervix was dilated to Hegar 6. Uterus was sounded to 10 cm. A Soundstachelka uterine manipulator was then placed. Attention was then turned to performing the lapar oscopic portion of the procedure. All incisions were injected with 0.5% Marcaine prior to incision. A vertical 5 mm infraumbilical, incision, was made and a 5 mm trocar placed under direct visualization with the laparoscope. The abdomen was then insufflated with carbon dioxide gas to a pressure of 15 mm of mercury. To bilateral lower quadrant trocars were then placed under direct visualization. Both were placed approximately 3-4 finger breaths medial to the ischial crests. The right trocar was 5 mm the left trocar was 11 mm. A diagnostic laparoscopy was then performed with findings stated above. The left fallopian tube was grasped with a sliding grasper. The left fallopian tube was removed from the broad ligament using the LigaSure dissecting forceps starting at the fimbriated end of the tube. Sequential pedicles were then formed to the level of the cornua. The tube was then removed at the cornua and removed from the abdomen through the 11 mm port. The pelvis was irrigated and a 100-150 mL blood clot from the pelvis was suctioned out. The fascia of the 11 mm port was reapproximated using the Chema Thomasen fascial closure device. Excellent hemostasis was noted of all pedicles. The trocars were then removed under direct visualization. The CO2 gas was allowed to escape the infraumbilical port prior to its removal. All incisions were reapproximated using 4-0 Monocryl in a running subcuticular manner. Exofin skin adhesive was then applied and adhesive dressings applied over each incision. The uterine manipulator and Palma catheter were removed. The patient tolerated this procedure well. Sponge, lap and instrument counts were correct x2 at the end of the procedure and the patient was taken to the recovery area in stable condition.
[2024-08-10] MEDS: LACTATED RINGERS 1000 ML 1,000 ML 75 ML IV (11:41)
[2024-08-10] MEDS: BUPIVACAINE 0.5% 30 ML INJECTION (12:15)
[2024-08-10] MEDS: fentaNYL 100 MCG/2 ML inj 50 MCG IVP (13:28)
--- NOTE | 2024-08-10 13:44 | W.ANESCHARGE ---
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
--- NOTE | 2024-08-10 13:47 | SUR.PHASEI ---
patient met discharge criteria per anesthesia
[2024-08-10] MEDS: OXYCODONE 5 MG TABLET PO (14:21)
--- NOTE | 2024-08-10 17:26 | PC.NURSE ---
End of Shift: Patient from PACU approx 1345. Pleasant and cooperative. Afebrile. Lap sites to abdomen C/D/I. Rating pain 2-4/10 and PRN Oxycodone given x1. Tolerating toast and fluids. Up to bathroom with SBA. Patient discharged home at 1633 with all personal belongings accompanied by family. Discharge instructions including diagnosis, medications and follow up appointment discussed with patient and voiced understanding.
== END 2024-08-10 16:33 | disposition home or self-care (01) ==
LOC: ED 11:02 → OR 11:46 → MEDSURG 14:08
PROVIDERS: Emergency Provider Emergency Medicine Emergency Medical Services; PCP Family Medicine; Visit Provider Obstetrics & Gynecology
PROC: (CPT 59150; principal; 2024-08-10 11:30)
DX: O00.202 Left ovarian pregnancy without intrauterine pregnancy (principal); R10.32 Left lower quadrant pain; Z3A.01 Less than 8 weeks gestation of pregnancy
CPT/HCPCS: 59151; 00840; 36415; 76817; 80048; 80076; 84702; 85025; 86850; 86900; 86901; 88305; 99140; 99284; A9270; J0665; J1100; J1170; J1630; J1885; J2405; J2704; J2710; J3010; J7120

== ENCOUNTER 2024-10-21 06:56 | Day surgery (SDC) | payer BC, SELFPAY ==
[2024-10-21] VITALS (15 sets, daily range): BP systolic 105–144; BP diastolic 32–85; PULSE 59–140; RESP 12–18; TEMP 36.4–37.1; O2SAT 96–100; BMI 29.2
[2024-10-21 07:56] LABS: Ur HCG Qualitative* Negative (Negative)
[2024-10-21 07:59] LABS: Hemoglobin* 14.1 gm/dL (12.0-16.0)
--- NOTE | 2024-10-21 08:17 | W.PM.H&PU ---
History & Physical Update History & Physical Update H&P Reviewed and patient assessed: No changes noted
--- NOTE | 2024-10-21 08:20 | PM.PROC ---
Procedure Note Time Seen by Provider: 10:19 Date Seen: 10/21/24 Date of procedure: 10/21/24 Will [facility] bill your pro fee for this procedure?: Yes Procedure: Preoperative diagnosis: 34-year-old with MISSY 2 and right hydrosalpinx Postoperative diagnosis: Same. Procedure: 1. LEEP cone biopsy, ECC. 2. Laparoscopic right salpingectomy Anesthesia: General endotracheal, local Surgeon: Micki Rosales MD Drafter Construction: James Agrawal MD EBL: 10 mL Urine output: 250 mL clear urine IVF: 450 ml Specimen: 1. Leep Cone Biopsy open at 9 o'clock. 2. ECC. 3. Right fallopian tube to pathology Findings: On exam under anesthesia: The uterus was anteverted, less than 10 week size, mobile, without masses or nodularity palpable. The cervix appears grossly normal. Adnexa were without mass or fullness bilaterally. The uterus sounded to 8 cm. On laparoscopy: The uterus and bilateral ovaries appear normal. Right hydrosalpinx identified. There was a hematoma within the right mesosalpinx prior to the procedure that did not expand during the surgery. Procedure: Tricia was taken to the operating room where general anesthetic was found to be adequate. She was placed in the dorsal lithotomy position and an exam under anesthesia was performed with findings stated above. Her vaginal canal was not prepped due to plan for LEEP procedure. Her abdomen was then prepped and draped in a normal sterile manner. A Palma catheter was then placed. A bivalve speculum was then placed in the vaginal canal to visualize the cervix. Lugol's solution was applied to the cervix and orange staining was noted circumferentially around the cervical os. A paracervical block was obtained using 1% lidocaine with epinephrine, 5 mL injected at the 4 and 8 o'clock positions on the cervix. 1% lidocaine with epinephrine was then injected intracervically. A 1.5 x 1.0 cm loop was used to perform the LEEP. An ECC was then collected. The base of the LEEP biopsy was cauterized with bipolar cautery ball. Monsel's solution was then applied. Attention was then turned to performing the laparoscopic portion of the procedure. The anterior lip of the cervix was grasped with an a long Allis clamp. Uterus was sounded to 8 cm. A Remicalm uterine manipulator was then placed. Attention was then turned to performing the laparoscopic portion of the procedure. All incisions were injected with 0.5% Marcaine prior to incision. A vertical 5 mm infraumbilical, incision, was made and a 5 mm trocar placed under direct visualization with the laparoscope. The abdomen was then insufflated with carbon dioxide gas to a pressure of 15 mm of mercury. To bilateral lower quadrant trocars were then placed under direct visualization. Both were placed approximately 3-4 finger breaths medial to the ischial crests. Both ports were 5 mm. A diagnostic laparoscopy was then performed with findings stated above. The right fallopian tube was grasped with a laparoscopic grasper. The right fallopian tube was removed from the broad ligament using the LigaSure dissecting forceps starting at the fimbriated end of the tube. Sequential pedicles were then formed to the level of the cornua. The tube was then removed at the cornua and removed from the abdomen through the left lower quadrant port. Excellent hemostasis was noted of all pedicles. The trocars were then removed under direct visualization. The CO2 gas was allowed to escape the infraumbilical port prior to its removal. All incisions were reapproximated using 4-0 Monocryl in a running subcuticular manner. LiquiBand skin adhesive was then applied and adhesive dressings applied over each incision. The uterine manipulator and Palma catheter were removed. The patient tolerated this procedure well. Sponge, lap and instrument counts were correct x2 at the end of the procedure and the patient was taken to the recovery area in stable condition.
[2024-10-21] MEDS: LACTATED RINGERS 500 ML 500 ML 100 ML IV (09:00)
[2024-10-21] MEDS: LIDOCAINE 1%-EPI 1:100,000 20 ML INFILTRATI (09:16)
[2024-10-21] MEDS: FERRIC SUBSULFATE 8 GM VIAL 1 VIAL TOPICAL (09:20)
[2024-10-21] MEDS: BUPIVACAINE 0.25% 30 ML INJECTION (09:48)
--- NOTE | 2024-10-21 10:20 | W.ANESCHARGE ---
Anesthesia Charges Start Date/Time Anesthesia Start Date: 10/21/24 Anesthesia Start Time: 09:00 Stop Date/Time Anesthesia Stop Date: 10/21/24 Anesthesia Stop Time: 10:17
[2024-10-21] MEDS: ONDANSETRON 2 MG/ML inj 4 MG IVP (10:28)
--- NOTE | 2024-10-21 10:38 | W.ANESCHARGE ---
Anesthesia Charges Start Date/Time Anesthesia Start Date: 10/21/24 Anesthesia Start Time: 09:00 Stop Date/Time Anesthesia Stop Date: 10/21/24 Anesthesia Stop Time: 10:17
--- NOTE | 2024-10-21 10:48 | SUR.PHASEI ---
patient met discharge criteria per anesthesia
--- NOTE | 2024-10-21 12:51 | SUR.PHASEII ---
pt tolerated bites of applesauce, water and juice. 3 lap sites c/d/i. glued closed. scant amount of drainage noted on cali pad. wheelchair out to car with Tory.
== END 2024-10-21 12:55 | disposition home or self-care (01) ==
LOC: OR 06:58
PROVIDERS: PCP Family Medicine; Visit Provider Obstetrics & Gynecology
PROC: 0UBC7ZZ Excision of Cervix, Via Natural or Artificial Opening (ICD-10-PCS; CPT 57522; principal; 2024-10-21 08:15)
PROC: (CPT 58661; 2024-10-21 08:15)
DX: N87.1 Moderate cervical dysplasia (principal); N70.11 Chronic salpingitis
CPT/HCPCS: 57522; 58661; 00840; 36415; 81025; 85018; 86850; 86900; 86901; 88305; 88307; A4344; A9270; J0330; J0665; J1100; J1630; J1885; J2250; J2405; J2704; J2710; J3010; J3490; J7120